=== PATIENT | male | born 1995 | race African-American/Black ===

== ENCOUNTER 2022-06-29 21:48 | Emergency (ER) | payer BC, SELFPAY ==
[~2022-06-29 21:48] MED LIST: Iopamidol 370 76% 100 ML VIAL ONE
[2022-06-29] MEDS ORDERED: Calcium Chloride 1 GM/10 ML Abboject SYRINGE ONE ×2 (22:03→22:04)
[2022-06-29 22:10] LABS: Hemoglobin 12.7 g/dL (14.0-18.0); Mean Corpuscular Hemoglobin 29.7 pg (27.0-31.0); Mean Corpuscular Volume 89.9 fL (78.0-98.0); Mean Platelet Volume 7.9 fL (7.4-10.4); Platelet Count 130 thou/uL (130-400); RBC Distribution Width 12.2 % (11.5-14.5); Red Blood Cell (RBC) Count 4.28 mill/uL (4.70-6.10)
[2022-06-29 22:24] LABS: ALT (SGPT) 98 U/L (8-55); AST (SGOT) 131 U/L (5-34); Albumin 2.2 g/dL (3.5-5.0); Alkaline Phosphatase 38 U/L (40-110); Anion Gap 24 mmol/L (10-20); BUN (Urea Nitrogen) 10 mg/dL (8.9-20.6); Bilirubin, Total 0.4 mg/dL (0.2-1.2); Calc. Creatinine Clearance 0 mL/min (70-130); Calcium 7.1 mg/dL (7.8-10.44); Carbon Dioxide 12 mmol/L (22-29); Chloride 112 mmol/L (98-107); Estimated GFR 71; Globulin 1.5 g/dL (2.4-3.5); Glucose 221 mg/dL (70-105); Potassium 4.7 mmol/L (3.5-5.1); Protein, Total 3.7 g/dL (6.0-8.3); Sodium 143 mmol/L (136-145)
[2022-06-29 22:26] LABS: Band 2 % (5-11); Eosinophils 8 % (0-10); INR-International Normal Ratio 1.4; Lymphocytes 36 % (21-51); MDiff Complete? YES; Monocytes 2 % (0-10); Neutrophil 31 % (42-75); Platelet Morphology Comment Appears Adequate; Prothrombin Time 17.1 sec (12.0-14.7); RBC Morphology Normal; Reactive Lymphocytes 20 % (0-10)
[2022-06-29 22:27] LABS: PTT 45.7 sec (22.9-36.1)
[2022-06-29] MEDS ORDERED: Fentanyl CADD 100 ML IV SCH ×2 (22:30→23:15)
[2022-06-29] MEDS ORDERED: CEFAZOLIN 2 GM VIAL ONE (22:51)
[2022-06-29] MEDS ORDERED: Boostrix 0.5 ML (Tdap) VIAL ONE (22:51)
[2022-06-29 23:02] LABS: Actual Bicarbonate (HCO3a) 16.5 mEq/L (22-28); Analyzer IN Cardio ER; Base Excess (BEa) -9.8 mEq/L (-2.0 to +3.0); CO2 Tension 37.7 mmHg (35.0-45.0); Calcium, Ionized (arterial) 1.05 mmol/L (1.12-1.30); Carboxyhemoglobin (COHb) 0.3 gm% (0.0-3.0); Hemoglobin (Hb) 12.4 g/dL (14.0-18.0); O2 Tension (PaO2), arterial 373.5 mmHg (80.0-100.0); Potassium - ABG Lab 5.16 mmol/L (3.70-5.30); pH, Arterial 7.26 (7.35-7.45)
[2022-06-29 23:07] LABS: Puncture Site RBA
[2022-06-29] MEDS ORDERED: Promethazine HCl 25 MG/ML VIAL IM PRN (23:07)
[2022-06-29] MEDS ORDERED: Ondansetron PF 4 MG/2 ML Vial IVP PRN (23:07)
[2022-06-29] MEDS ORDERED: hydrALAZINE 20 MG/ML VIAL SLOW IVP PRN (23:07)
[2022-06-29 23:08] LABS: ALV-art Gradient 292.375 mmHg (0-20)
[2022-06-29] MEDS ORDERED: fentaNYL Citrate/PF 2,000 MCG in Sodium Chloride 0.9% 60 ML IV PRN (23:11)
[2022-06-29] MEDS ORDERED: Acetaminophen 325 MG TAB PO SCH (23:15)
[2022-06-29] MEDS ORDERED: Sodium Chloride 0.9% 1,000 ML IV SCH (23:15)
[2022-06-29] MEDS ORDERED: Dexmedetomidine In 0.9 % NaCl 100 ML IVPB SCH (23:15)
[2022-06-29] MEDS ORDERED: Propofol 1,000 MG/100 ML VIAL IV ONE (23:39)
[2022-06-30] MEDS ORDERED: Esmolol 2,500 MG/250 ML 250 ML ONE (00:05)
[2022-06-30 00:22] LABS: SARS-CoV-2 NAA Rapid Test DETECTED (NotDetected)
[2022-06-30] MEDS ORDERED: Esmolol 2,500 MG/250 ML 250 ML IVPB SCH (00:30)
[2022-06-30] MEDS ORDERED: Famotidine/PF 20 mg/2ml Vial SLOW IVP SCH (09:00)
== END 2022-06-30 00:45 | disposition short-term general hospital (02) ==
LOC: ERS 21:48
DX: S25.00XA Unspecified injury of thoracic aorta, initial encounter (principal); S72.91XA Unspecified fracture of right femur, initial encounter for closed fracture; I95.9 Hypotension, unspecified; R57.1 Hypovolemic shock; V43.52XA Car driver injured in collision with other type car in traffic accident, initial encounter
CPT/HCPCS: 27502; 29505; 31500; 32551; 36430; 36556; 36600; 36620; 70450; 70486; 71045; 71260; 72125; 72170; 74177; 82805; 83605; 85610; 85730; 86850; 86900; 86901; 90471; 90715; 94002; 96374; 96375; 96376; G0390; J0690; J2704; J3010; J7050; P9016; P9048; Q9967; U0002